=== PATIENT | female | born 1975 | race African-American/Black ===

== ENCOUNTER 2022-12-21 10:30 | Inpatient (IN) ==
--- NOTE | 2022-12-03 10:14 | PAT Medication Instructions ---
Medication Instructions Date of Service December 03, 2022 Home Medications gabapentin 300 mg capsule 300 mg PO TID oxycodone-acetaminophen 10 mg-325 mg tablet (Percocet) 1 tab PO QID Take morning of surgery With a small sip of water, OTHERWISE NOTHING TO EAT OR DRINK AFTER MIDNIGHT: gabapentin 300 mg capsule 300 mg PO TID oxycodone-acetaminophen 10 mg-325 mg tablet (Percocet) 1 tab PO QID Take evening before surgery gabapentin 300 mg capsule 300 mg PO TID oxycodone-acetaminophen 10 mg-325 mg tablet (Percocet) 1 tab PO QID Other Notes If you have any questions please call us at [phone] or [phone] or [phone] or [phone]
--- NOTE | 2022-12-07 11:03 | Anesthesiology Consultation ---
Date of Service December 07, 2022 Assessment & Plan (1) Encounter for pre-operative examination: - COVID screening: Per assessment on 12/07: No known COVID-19 positive contacts or current COVID-19 related symptoms. Travel screen negative. At surgeon discretion if preop Covid testing being done. - G6PD deficiency: Diagnosed in childhood d/t family history. Per pt, she states she was told that due to this condition she needs to avoid ASA and sulfa as well as other associated medications. Case reviewed with Dr. Dennis. Nothing further needed preoperative from his perspective besides flagging in the chart. Chart Review Chart Review: Acceptable Risk for Surgery and Patient seen in Pre Admission Testing Teaching & Discussion Pre-Anesthesia Teaching/Discussion Notes: Instructed NPO after midnight before surgery,except medications with 15 cc of water. Medication instructions provided according to the PAT guidelines. History Surgery Operation Date: 12/21/22 07:45 Proposed Procedures p L4-S1 Decompression and Fusion, Spinal Cord Monitoring - Mak Bejarano, Height/Weight Height: 5 ft 1 in Weight: 74.3 kg Allergies Allergy/AdvReac Type Severity Reaction Status Date / Time aspirin Allergy Intermediate G6PD blood Verified 12/07/22 11:14 disorder Sulfa (Sulfonamide Allergy Intermediate G6PD blood Verified 12/07/22 11:14 Antibiotics) disorder Medications Home Medications Medication Instructions Recorded Confirmed Last Taken gabapentin 300 mg capsule 300 mg PO TID 12/03/22 12/03/22 Unknown oxycodone-acetaminophen 10 mg-325 1 tab PO QID 12/03/22 12/03/22 Unknown mg tablet (Percocet) Past Medical History Medical History Chronic back pain DDD (degenerative disc disease) G-6-PD deficiency Tested as child d/t family hx No aspirin products or sulfa due to this History of COVID-19 Three times, most recent 03/2022 > hospitalized with initial infection 09/2020 Neuropathy Feet + occasionally hands Sciatica Spinal stenosis Exercise / Class Metabolic Activity II 4-5 Yardwork/Stairs/Walk up hill Past Family History Family History Mother Diabetes Grandmother Diabetes Sister Diabetes Past Surgical History Surgical History History of bilateral tubal ligation History of breast biopsy benign History of cholecystectomy History of tooth extraction Past Anesthesia History No Hx of Anesthesia Complications and No Family Hx of Anesthesia Complications History of PONV No Hx of PONV and No Hx of Motion Sickness Social History Smoking Status: Current every day smoker tobacco type: cigarettes Smoking cigarettes per day: 3-4 per day Do You Dip or Chew Tobacco: No Hx Alcohol Use: Yes Alcohol type: wine alcohol intake frequency: holidays/special occasions only Hx Substance Use: No substance use type: does not use Review of Systems Patient denies chest pain, shortness of breath, dyspnea on exertion, fever, chills, cough, wheezing, palpitations. Physical Exam Vital Signs VITALS BP 116/78 P 99 TEMP 98.5 SP02 97%RA RESP 16 PHYSICAL Full cervical extension range of motion. Full TMJ range of motion. TMD 3.5 finger breaths Mallampati Score 2 (macroglossia) Dentition: upper partial Lungs: clear throughout to auscultation Cardiac: regular rate and rhythm, no murmurs noted Spine: normal Carotid arteries: negative bruit Extremities: no edema Lab Results Anesthesia Preop Results Results Anesthesia Widget: WBC 6.70 K/ul (4.8-10.8) 12/07/22 Hgb 12.0 g/dl (12.0-16.0) 12/07/22 Hct 36.0 % (37.0-47.0) L 12/07/22 Plt 440 K/uL (130-400) H 12/07/22 Na 139 mmol/L (136-145) 12/07/22 K 3.6 mmol/L (3.5-5.1) 12/07/22 Cl 105 mmol/L (98-107) 12/07/22 CO2 30 mmol/L (21-32) 12/07/22 BUN 12 mg/dl (6-23) 12/07/22 Creat 0.77 mg/dl (0.6-1.2) 12/07/22 Glucose Level 86 mg/dl (70-99(Fasting)) 12/07/22 PT 10.4 Seconds (9.0-12.0) 12/07/22 PTT 25.5 Seconds (21.0-31.0) 12/07/22 INR 1.0 (0.9-1.1) 12/07/22 Urine Color Dark Yellow 12/07/22 Urine Appearance Cloudy (Clear) A 12/07/22 Urine pH 5.5 (4.5-7.5) 12/07/22 Urine Specific Fielding 1.026 (1.000-1.030) 12/07/22 Urine Protein Trace (Negative) H 12/07/22 Urine Glucose (UA) Negative (Negative) 12/07/22 Urine Ketones Trace (Negative) H 12/07/22 Urine Blood Negative (Negative) 12/07/22 Urine Nitrite Negative (Negative) 12/07/22 Urine Bilirubin Negative (Negative) 12/07/22 Urine Urobilinogen Negative (Negative) 12/07/22 Urine Leukocyte Esterase Negative (Negative) 12/07/22 Urine WBC (Auto) 1-5 /hpf (0-5) 12/07/22 Urine RBC (Auto) 10-30 /hpf (0-4) H 12/07/22 Urine Hyaline Casts (Auto) 5-10 /lpf (0-5) H 12/07/22 Urine Epithelial Cells (Auto) >30 /lpf (0-5) H 12/07/22 Urine Bacteria (Auto) 2+ (Negative) H 12/07/22 Blood Type B Positive 12/07/22 Antibody Screen NEGATIVE 12/07/22 Testing Laboratory Results Surgeon's office made aware of abnormal UA* Electrocardiogram Date: 12/07/22 Findings: + NSR @ (80) Chest X-Ray Date: 12/07/22 FINDINGS: The lungs are clear. Cardiac silhouette is normal in size. No pleural effusions. No pneumothorax. Prior cholecystectomy. IMPRESSION: No acute process. COVID-19 Risk Screen Screening Information COVID-19 Screen Date: 12/07/22 Exposure 21 Days Family/Household +COVID Last 21 Days: No Exposure 10 Days Any COVID Exposure Last 10 Days: No Symptoms Last 10 Days Experienced COVID Sx Last 10 Days: No + COVID 0-90 Days COVID + in Last 0-90 Days: No
[~2022-12-21 10:30] MED LIST: ACETAMINOPHEN 500 MG TAB PO SCH; GABAPENTIN 900 MG DOSE PO SCH; LR 15ML/HR IV SCH; ceFAZolin 2000MG 2,000 MG/15 ML SYR IV SCH
[2022-12-21] MEDS ORDERED: ONDANSETRON INJ 2 MG/ML 2 ML VIAL IV PRN ×2 (11:26→16:37)
[2022-12-21] MEDS ORDERED: ePHEDrine sulfate 50 MG/ML AMP IV PRN (11:26)
[2022-12-21] MEDS ORDERED: ATROPINE SULFATE 0.1 MG/ML 10ML SYR IV PRN (11:26)
[2022-12-21] MEDS ORDERED: fentaNYL citrate 100 MCG/2 ML VIAL IV PRN (11:26)
[2022-12-21] MEDS ORDERED: HYDROmorphone INJ 1 MG/ML SYRINGE IV PRN (11:26)
--- NOTE | 2022-12-21 11:56 | History & Physical Bridge Note ---
Date of Service December 21, 2022 History & Physical Bridge Note I have examined the patient, reviewed the History & Physical and in the interval since the performance of the History & Physical I have noted the following changes of clinical significance: no changes noted
--- NOTE | 2022-12-21 11:57 | History & Physical Report ---
Date of Service December 21, 2022 Assessment & Plan (1) Lumbar disc herniation with radiculopathy: Plan: L4-S1 decompression and fusion History of Present Illness Chief Complaint: Back and leg pain Primary Care Provider: NO PCP This is a 46-year-old female who presents for persistent back and leg pain after failing course of nonoperative care she is here for surgical invention. Allergies Allergy/AdvReac Type Severity Reaction Status Date / Time aspirin Allergy Intermediate G6PD blood Verified 12/21/22 10:56 disorder Sulfa (Sulfonamide Allergy Intermediate G6PD blood Verified 12/21/22 10:56 Antibiotics) disorder Home Medications Medication Instructions Recorded Confirmed Type gabapentin 300 mg capsule 300 mg PO TID 12/03/22 12/21/22 History Past Med/Surg History Medical History Chronic back pain DDD (degenerative disc disease) G-6-PD deficiency Tested as child d/t family hx No aspirin products or sulfa due to this History of COVID-19 Three times, most recent 03/2022 > hospitalized with initial infection 09/2020 Neuropathy Feet + occasionally hands Sciatica Spinal stenosis Surgical History History of bilateral tubal ligation History of breast biopsy benign History of cholecystectomy History of tooth extraction Family History Mother Diabetes Grandmother Diabetes Sister Diabetes Social History (Updated 12/21/22 @ 10:56 by Bridgette Carranza RN) Smoking Status: Current every day smoker Cigarettes Per Day: 3-4 per day smoked 1/2 cig prior to arrival; Second Hand Exposure: No; Do You Dip or Chew Tobacco: No; Tobacco Cessation Education Requested by Patient: No Hx Alcohol Use: Yes Alcohol type: wine Hx Substance Use: No Preferred Language: [place]se Communication Ability: Effective Plumber Helper Required: No Beliefs That Will Affect Care: Yazdanism Yazdanism Beliefs: Isalamic > no pork products, and no blood products Current Living Situation: Spouse Other Information That Helps Us Care for You: No Feels Safe at Home: Yes Safety Concerns: Feels Safe At This Time Assistive Devices: Denture - Upper and Denture - Lower Physical Exam Physical Exam: Patient is alert and oriented Heart regular rhythm Lungs clear Results & Data Results & Data ([facility]) Vital Signs (Past 12 Hours) Vital Signs Temp Pulse Resp BP Pulse Ox O2 Del Method 12/21/22 11:00 37 C 83 20 115/74 99 Room Air
[2022-12-21] MEDS ORDERED: BUPIVACAINE 0.25% 30 ML VIAL ONE (12:22)
[2022-12-21] MEDS ORDERED: EPINEPHrine INJ 1 MG/ML AMP ONE (12:23)
[2022-12-21] MEDS ORDERED: ceFAZolin 330 MG/ML 1 GM VIAL ONE (12:24)
[2022-12-21] MEDS ORDERED: fentaNYL citrate 100 MCG/2 ML VIAL ONE ×2 (12:25→14:43)
[2022-12-21] MEDS ORDERED: LIDOCAINE 2% MPF LOCAL 5 ML VIAL INFIL ONE (12:25)
[2022-12-21] MEDS ORDERED: MIDAZOLAM HCL 1 MG/ML 2ML VIAL ONE (12:25)
[2022-12-21] MEDS ORDERED: PROPOFOL IV EMULSION 10 MG/ML 20 ML VIAL IV ONE (12:25)
[2022-12-21] MEDS ORDERED: ROCURONIUM BROMIDE 10 MG/ML 5 ML VIAL IV ONE ×3 (12:27→13:00)
[2022-12-21] MEDS ORDERED: HYDROmorphone INJ 2 MG/ML SYR/VIAL ONE (12:58)
[2022-12-21] MEDS ORDERED: FLOSEAL HEMOSTATIC MATRIX 10ML TOP ONE (13:22)
[2022-12-21] MEDS ORDERED: ONDANSETRON INJ 2 MG/ML 2 ML VIAL ONE (13:38)
[2022-12-21] MEDS ORDERED: DEXAMETHASONE SOD INJ 4 MG/ML VIAL ONE (13:38)
[2022-12-21] MEDS ORDERED: GLYCOPYRROLATE 0.2 MG/ML VIAL ONE (13:39)
[2022-12-21] MEDS ORDERED: NEOSTIGMINE METHYLSULFATE 1 MG/ML 10ML VIAL ONE (13:40)
--- NOTE | 2022-12-21 14:54 | Operative Report ---
Post Operative Report Pre & Post Diagnosis Operation Date: 12/21/22 11:55 Pre-Op Diagnosis: Lumbar disc herniation with spinal stenosis and radiculopathy Post-Op Diagnosis: Same I identified the patient and participated in the time-out.: Yes Procedure Operation Date: 12/21/22 11:55 Actual Procedures #1 lumbar decompression with bilateral medial facetectomies and foraminotomies L3-L4, L4-5 and L5-S1. #2 posterior spinal fusion L4-L5 L5-S1. #3 placement of posterior instrumentation L4-S1. #4 interbody fusion L4-L5 L5-S1. #5 placement of Spira 13 x 26 mm at L4-5 and 12 x 26 mm at L5-S1. #6 placement locally harvested morselized autograft in the posterior gutters. #7 placement of I factor model V toss in the interbody space and posterior lateral gutters. Surgeon Mak Bejarano, Curing Machine Operator Khris Bird Estimated Blood Loss 100 Findings Consistent with Post-Op Diagnosis Specimens None Indications This is a 47-year-old female who presents above-mentioned diagnosis after failed extensive course of nonoperative care she is here for surgical invention. Description of Procedure Patient was met with identified informed consent obtained. Patient was then taken to the operative suite underwent a patient placed in a prone position the Jex table atop the Justin frame. All bony prominences well-padded eyes inspected to ensure no external pressure placed upon the. This point the lumbar spine was prepped and draped in normal sterile fashion. Sharp dissection with the assistance of Bovie cautery was performed down to and exposing the lamina and transverse processes of L4-L5 and sacral ala bilaterally. No calcified fashion complete laminectomy of L5 L4 and partial and active L3 was performed including bilateral medial facetectomies and foraminotomies addressing severe neural compression and stenosis. Pedicle screws were then placed in L4-L5 and S1 levels bilaterally with assistance of fluoroscopy and the properly sized jhon placed. By way the transforaminal approach and left P discectomy of L5-S1 was performed endplates corrected to subcortical bleeding bone and a 12 x 26 mm Spira cage with I factor tapped in position. Then proceeded to L f4or L5 and again by way of a transforaminal approach on the left complete discectomy performed endplates curetted to subcortically bone and a 13 x 26 mm spiral cage with I factor tapped in position. Rods were then locked into final position bilaterally. The transverse processes of L 4 L5 and sacral ala burred to subcortical bone. I factor amount of the test and locally harvested morselized autograft was placed in the posterior gutters. 15 round SANIA drain inserted. The incision was then closed with 1 Vicryl the fascia 2-0 Vicryl subcutaneously and 4 Monocryl for final skin closure. Steri-Strips dressings placed. Patient waken taken to PACU in stable condition. Please note spinal cord monitoring was utilized at the procedure no changes noted. Lastly Khris Bird was present at the entire surgery and while the patient positioning complex portions of the surgery and final skin closure. I attest to the content of the Intraoperative Record and any orders documented therein. Any exceptions are noted below.
--- NOTE | 2022-12-21 14:56 | Fluoroscopy Report ---
INTRAOPERATIVE RADIOGRAPHS CLINICAL HISTORY: Lumbar spinal fusion surgery. Fluoro time: 31 seconds Exposure: 25.24 mGy FINDINGS: 2 spot fluoroscopic views of the lumbar spine are presented. There has been discectomy at L 4-L5 and L5-S1 with laminectomy and posterior fusion at L4-S1. Interpedicular screws are present at a ll levels. The orthopedic hardware appears intact. IMPRESSION: Intraoperative images from lumbar spinal fusion surgery as above. Electronically signed by: Juvenal Paul M.D. 12/21/2022 2:55 PM
--- NOTE | 2022-12-21 16:12 | Anesthesiology Progress Note ---
Date of Service December 21, 2022 Anesthesia Post Procedure Vital Signs Vital Signs: Temp Pulse Pulse Resp BP Pulse Ox O2 Del Method 12/21/22 16:05 68 14 96/59 L 96 Nasal Cannula 12/21/22 15:55 36.4 C L 69 14 102/57 L 96 Nasal Cannula 12/21/22 15:45 71 16 97/57 L 100 Oxymask 12/21/22 15:35 89 18 111/74 98 Oxymask 12/21/22 15:25 74 12 104/84 98 Oxymask 12/21/22 15:15 72 14 102/55 L 96 Oxymask 12/21/22 15:09 36.2 C L 62 20 98/66 L 96 Oxymask 12/21/22 11:00 37 C 83 20 115/74 99 Room Air O2 Flow Rate 12/21/22 16:05 2 12/21/22 15:55 3 12/21/22 15:45 4 12/21/22 15:35 4 12/21/22 15:25 11 12/21/22 15:15 11 12/21/22 15:09 11 12/21/22 11:00 Pain Intensity Bilateral Lower Back: Pain Intensity: 6 Transfer of Care Handoff Completed per policy Notes Mental Status: alert / awake / arousable and participated in evaluation Patient Amnestic to Procedure: Yes Nausea / Vomiting: adequately controlled Pain: adequately controlled Airway Patency, RR, SpO2: stable & adequate BP & HR: stable & adequate Hydration State: stable & adequate Anesthetic Complications: no major complications apparent and Pt Satisfied with anesthetic care
[2022-12-21] MEDS ORDERED: diphenhydrAMINE Capsule 25 MG CAP PO PRN (16:37)
[2022-12-21] MEDS ORDERED: NALOXONE HCL 0.4 MG/1 ML VIAL/CARP IV PRN (16:37)
[2022-12-21] MEDS ORDERED: ACETAMINOPHEN 500 MG TAB PO PRN (16:37)
[2022-12-21] MEDS ORDERED: SOD PHOSPHATE/SOD BIPHOSPHATE ENEMA 132 ML BTL PR PRN (16:37)
[2022-12-21] MEDS ORDERED: DO NOT ADMINISTER PNEUMOCOCCAL VACCINE PRN (16:37)
[2022-12-21] MEDS ORDERED: METOCLOPRAMIDE HCL INJ 5 MG/ML 2 ML VIAL IV PRN (16:37)
[2022-12-21] MEDS ORDERED: bisacodyL 10 MG SUPP PR PRN (16:37)
[2022-12-21] MEDS ORDERED: ACETAMINOPHEN 1,000 MG/100 ML VIAL IV PRN (16:37)
[2022-12-21] MEDS ORDERED: FAMOTIDINE 20 MG TAB PO PRN (16:37)
[2022-12-21] MEDS ORDERED: PROMETHAZINE HCL 12.5 MG in SODIUM CHLORIDE 0.9% 50 ML IV PRN (16:37)
[2022-12-21] MEDS ORDERED: hydrOXYzine HCl 25 MG TAB PO PRN (16:37)
[2022-12-21] MEDS ORDERED: ALUMINUM/MAGNESIUM SUSP 30 ML UDC PO PRN (16:37)
[2022-12-21] MEDS ORDERED: DO NOT ADMINISTER FLU VACCINE PRN (16:37)
[2022-12-21] MEDS ORDERED: LORazepam 2 MG/1 ML VIAL IV PRN (16:37)
[2022-12-21] MEDS ORDERED: LORazepam 0.5 MG TAB PO PRN (16:37)
[2022-12-21] MEDS ORDERED: MAGNESIUM HYDROXIDE SUSP 30 ML UDC PO PRN (16:37)
[2022-12-21] MEDS ORDERED: ONDANSETRON 4 MG OD TAB PO PRN (16:37)
[2022-12-21] MEDS: HYDROmorphone INJ 0.5 MG/0.5 ML SYR IV PRN ×2 (16:52→21:54)
[2022-12-21] MEDS: LACTATED RINGER'S 1,000 ML IV SCH (17:02)
[2022-12-21] MEDS: oxyCODONE HCL IR 5 MG TAB (IMMEDIATE RELEASE) PO PRN (20:25)
[2022-12-21] MEDS: GABAPENTIN 300 MG CAP PO SCH (20:25)
[2022-12-21] MEDS: DOCUSATE SODIUM/SENNA 50/8.6MG TAB PO SCH (20:26)
[2022-12-21] MEDS: ceFAZolin 2000MG 2,000 MG/15 ML SYR IV SCH (20:26)
[2022-12-22] MEDS: oxyCODONE HCL IR 5 MG TAB (IMMEDIATE RELEASE) PO PRN ×3 (00:31→17:06)
[2022-12-22] MEDS: traMADol HCL 50 MG TABLET PO PRN ×3 (02:01→14:04)
[2022-12-22] MEDS: HYDROmorphone INJ 0.5 MG/0.5 ML SYR IV PRN ×4 (03:02→21:52)
[2022-12-22] MEDS: LACTATED RINGER'S 1,000 ML IV SCH (05:01)
[2022-12-22] MEDS: ceFAZolin 2000MG 2,000 MG/15 ML SYR IV SCH (06:08)
[2022-12-22] MEDS: POLYETHYLENE (MIRALAX) 17 GM PACK PO SCH ×4 (06:08→23:49)
[2022-12-22 07:51] LABS: Basophils # (auto) 0.01 K/uL (0-0.2); Basophils % (auto) 0.1 %; Eosinophils # (auto) 0.01 K/uL (0-0.50); Eosinophils % (auto) 0.1 %; Hematocrit (blood only) 28.2 % (37.0-47.0); Hemoglobin 9.3 g/dl (12.0-16.0); Immature Granulocytes # (auto) 0.08 K/uL (0.01-0.20); Immature Granulocytes % (auto) 0.6 %; Lymphocytes # (auto) 2.59 K/uL (1.2-3.4); Lymphocytes % (auto) 19.8 %; Mean Corpuscular Hemoglobin 28.7 pg (25.0-34.0); Mean Platelet Volume 9.9 fL (9.4-12.4); Monocytes # (auto) 1.18 K/uL (0.11-0.59); Neutrophils # (auto) 9.21 K/uL (1.40-6.50); Neutrophils % (auto) 70.4 %; Platelet Count 345 K/uL (130-400); RDW Coefficient of Variation 12.7 % (11.5-14.5); RDW Standard Deviation 40.6 fL (36.4-46.3); Red Blood Count 3.24 M/uL (4.20-5.40); White Blood Count 13.08 K/ul (4.8-10.8)
[2022-12-22] MEDS: GABAPENTIN 300 MG CAP PO SCH ×3 (07:53→20:10)
[2022-12-22] MEDS: dexAMETHasone 6 MG in SYRINGE 0 ML IV SCH (07:53)
[2022-12-22 08:14] LABS: BUN Creatinine Ratio 12.9 (10-20); Calcium 8.8 mg/dl (8.5-10.1); Creatinine Clr Calc Pharmacy 104.1 ml/min; Est GFR (African American) 126.2 ml/min; Est GFR (Non-African American) 108.9 ml/min; Potassium 3.4 mmol/L (3.5-5.1)
--- NOTE | 2022-12-22 08:20 | Orthopedic Progress Note ---
Date of Service December 22, 2022 Assessment & Plan (1) Lumbar disc herniation with radiculopathy: Plan: At this time initiate physical therapy monitor SANIA output throughout the weekend and possible discharge home Saturday. Admission and Anticipated Discharge Date Admission Date: December 21, 2022 Subjective Back pain controlled left leg symptoms improved but still limiting. Physical Exam Physical Exam: Patient is in bed. She is sitting up. She is comfortable. Is good strength testing. Results & Data ([facility]) Vital Signs (Past 12 Hours) Vital Signs Temp Pulse Pulse Resp BP Pulse Ox O2 Del Method 12/22/22 07:47 36.6 C 72 16 112/78 94 Room Air 12/22/22 03:30 36.9 C 73 16 107/71 97 Room Air 12/21/22 23:21 36.8 C 70 16 105/68 96 Room Air
[2022-12-22] MEDS ORDERED: POTASSIUM CHLORIDE CRTAB 20 MEQ TABCR PO STA (08:29)
--- NOTE | 2022-12-22 10:08 | Hospitalist Consultation ---
Date of Consultation December 22, 2022 Assessment & Plan (1) Lumbar disc herniation with radiculopathy: s/p lumbar decompression and fusion on 12/21/[address] Bejarano - Pain medications, ambulation, drain management, and dvt ppx per primary service - utilize incentive spirometer q1-2h wa for atelectasis/pna prevention (2) Hypokalemia: - Replacement ordered with KCl 40 meq po x1 (3) Tobacco use: - Counseled on importance of cessation - Will provide Nicotine patch 7mg daily Plan Recommendations as outlined above. Thank you for allowing us to participate in the care of your patient, will sign off as patient is medically stable. Please feel free to reach out should any acute needs arise while she remains in house. Above plan of care has been d/w Dr. Wright who has also seen and evaluated this patient. History of Present Illness Reason for Consultation: Medical management Requesting Physician: Dr. Bejarano Attending Physician: Mak Bejarano, DO History of Present Illness Amna Hargrove is a pleasant 47 yo F with no past medical history who was admitted under Dr. Bejarano's service for elective lumbar decompression and fusion due to lumbar disc herniation with radiculopathy. Patient was taken to the OR on 12/21, tolerated procedure well without any immediate complications. She is seen on pod 1, she is resting comfortably in bed. She had an episode of chest pain overnight for which an EKG was ordered without any acute changes. She believes it was due to anxiety. She is currently w/o chest pain or dyspnea. Back pain is fairly well controlled with medications. She admits to smoking 3-4 cigarettes a day and is requesting a nicotine patch. She denies having a h/o PE or DVT. She otherwise has no complaints, questions, or concerns. Hospitalists were asked to see patient in consult for routine post operative medical management. Allergies Allergy/AdvReac Type Severity Reaction Status Date / Time aspirin Allergy Intermediate G6PD blood Verified 12/21/22 10:56 disorder Sulfa (Sulfonamide Allergy Intermediate G6PD blood Verified 12/21/22 10:56 Antibiotics) disorder banana Allergy Hives Verified 12/21/22 16:50 Home Medications Medication Instructions Recorded Confirmed Type gabapentin 300 mg capsule 300 mg PO TID 12/03/22 12/21/22 History oxycodone 5 mg tablet 5 mg PO Q6H PRN pain, severe #30 12/22/22 Rx tabs tramadol 50 mg tablet 50 mg PO Q6H PRN pain, moderate 12/22/22 Rx #30 tabs Patient History Medical History Chronic back pain DDD (degenerative disc disease) G-6-PD deficiency Tested as child d/t family hx No aspirin products or sulfa due to this History of COVID-19 Three times, most recent 03/2022 > hospitalized with initial infection 09/2020 Neuropathy Feet + occasionally hands Sciatica Spinal stenosis Surgical History History of bilateral tubal ligation History of breast biopsy benign History of cholecystectomy History of tooth extraction Family History Mother Diabetes Grandmother Diabetes Sister Diabetes Social History (Updated 12/21/22 @ 10:56 by Bridgette Carranza RN) Smoking Status: Current every day smoker Cigarettes Per Day: 4; Second Hand Exposure: No; Do You Dip or Chew Tobacco: No; Tobacco Cessation Education Requested by Patient: No Hx Alcohol Use: Yes Alcohol type: wine Hx Substance Use: No Preferred Language: Telugu Communication Ability: Effective Traffic Controller Cable Required: No Beliefs That Will Affect Care: None Current Living Situation: Spouse and Family Other Information That Helps Us Care for You: No Feels Safe at Home: Yes Safety Concerns: Feels Safe At This Time Assistive Devices: Bedside Commode and Walker Physical Exam Physical Exam: GENERAL: 47 yo Well-developed, well-nourished F. NAD. LUNGS: Clear to auscultation bilaterally. CARDIOVASCULAR: Regular rate and rhythm. NEUROLOGIC: A&O x3. No focal neurological deficits. CN II-XII intact Results & Data Results & Data ([facility]) Vital Signs (Past 12 Hours) Vital Signs Temp Pulse Pulse Resp BP Pulse Ox O2 Del Method 12/22/22 07:47 36.6 C 72 16 112/78 94 Room Air 12/22/22 03:30 36.9 C 73 16 107/71 97 Room Air 12/21/22 23:21 36.8 C 70 16 105/68 96 Room Air Laboratory Results 12/22/22 06:50 12/22/22 06:50 PG Care Time/CCT Total # of Minutes Spent Total Time Spent with Patient: Total time spent is greater than 50% in coordination of care (as documented) at patient's floor/unit and/or counseling patient: Coding Level of Care Code INP/OBS CONSULT LVL 4, 60 MIN Diagnoses Lumbar disc herniation with radiculopathy M51.16 Hypokalemia E87.6 Tobacco use Z72.0
[2022-12-22] MEDS: NICOTINE 7 MG/24 HR TDSY TD SCH (11:11)
--- NOTE | 2022-12-22 11:28 | Electrocardiogram Report ---
Test Reason : Blood Pressure : / mmHG Vent. Rate : 063 BPM Atrial Rate : 063 BPM P-R Int : 160 ms QRS Dur : 082 ms QT Int : 412 ms P-R-T Axes : 039 053 028 degrees QTc Int : 421 ms Normal sinus rhythm Normal ECG When compared with ECG of 07-DEC-2022 11:28, No significant change was found Confirmed by Andrew Foss ([id number]) on 12/22/2022 11:28:21 AM Referred By: Mak Bejarano Confirmed By:Andrew Foss
[2022-12-22] MEDS: DOCUSATE SODIUM/SENNA 50/8.6MG TAB PO SCH (20:10)
[2022-12-23] MEDS: HYDROmorphone INJ 0.5 MG/0.5 ML SYR IV PRN ×3 (03:53→19:34)
[2022-12-23] MEDS: POLYETHYLENE (MIRALAX) 17 GM PACK PO SCH ×2 (05:58→12:36)
[2022-12-23] MEDS: oxyCODONE HCL IR 5 MG TAB (IMMEDIATE RELEASE) PO PRN ×3 (05:58→21:55)
[2022-12-23] MEDS: traMADol HCL 50 MG TABLET PO PRN (09:25)
[2022-12-23] MEDS: dexAMETHasone 6 MG in SYRINGE 0 ML IV SCH (09:26)
[2022-12-23] MEDS: GABAPENTIN 300 MG CAP PO SCH ×3 (09:26→20:29)
[2022-12-23] MEDS: NICOTINE 7 MG/24 HR TDSY TD SCH (09:26)
--- NOTE | 2022-12-23 11:03 | Electrocardiogram Report ---
Test Reason : Blood Pressure : / mmHG Vent. Rate : 059 BPM Atrial Rate : 059 BPM P-R Int : 130 ms QRS Dur : 080 ms QT Int : 420 ms P-R-T Axes : 009 055 028 degrees QTc Int : 415 ms Sinus bradycardia Normal ECG When compared with ECG of 07-DEC-2022 11:28, No significant change was found Confirmed by Andrew Foss ([id number]) on 12/23/2022 11:02:49 AM Referred By: Mka Bejarano Confirmed By:Andrew Foss
--- NOTE | 2022-12-23 11:08 | Orthopedic Progress Note ---
Date of Service December 23, 2022 Assessment & Plan (1) Lumbar disc herniation with radiculopathy: Plan: At this time we will continue physical therapy monitor SANIA output anticipate discharge home possibly Saturday. Admission and Anticipated Discharge Date Admission Date: December 21, 2022 Subjective Patient's back pain is controlled left leg pain markedly improved Physical Exam Physical Exam: Patient is currently in bed. She is distracted testing. Results & Data ([facility]) Vital Signs (Past 12 Hours) Vital Signs Temp Pulse Resp BP Pulse Ox O2 Del Method 12/23/22 08:21 36.8 C 77 14 130/75 96 Room Air
[2022-12-23] MEDS ORDERED: Nursing to Pharmacy Communication SCH (16:30)
[2022-12-23] MEDS: DOCUSATE SODIUM/SENNA 50/8.6MG TAB PO SCH (20:29)
[2022-12-24] MEDS: HYDROmorphone INJ 0.5 MG/0.5 ML SYR IV PRN (01:33)
[2022-12-24] MEDS: oxyCODONE HCL IR 5 MG TAB (IMMEDIATE RELEASE) PO PRN ×3 (06:14→20:27)
[2022-12-24] MEDS: traMADol HCL 50 MG TABLET PO PRN ×3 (07:56→23:34)
[2022-12-24] MEDS: GABAPENTIN 300 MG CAP PO SCH ×3 (07:56→20:24)
[2022-12-24] MEDS: DOCUSATE SODIUM/SENNA 50/8.6MG TAB PO SCH (07:57)
[2022-12-24] MEDS: NICOTINE 7 MG/24 HR TDSY TD SCH (07:58)
[2022-12-24] MEDS: dexAMETHasone 6 MG in SYRINGE 0 ML IV SCH (10:00)
--- NOTE | 2022-12-24 10:45 | Orthopedic Progress Note ---
Date of Service December 24, 2022 Assessment & Plan (1) Lumbar disc herniation with radiculopathy: Plan: At this time we will continue physical therapy monitor SANIA operatively discharge home tomorrow. Admission and Anticipated Discharge Date Admission Date: December 21, 2022 Subjective Patient's back and leg pain steadily improving. She is tolerating physical therapy. Physical Exam Physical Exam: On exam she is stable in bed. She is cooperative. She is anxious to testing. Results & Data ([facility]) Vital Signs (Past 12 Hours) Vital Signs Temp Pulse Resp BP Pulse Ox O2 Del Method 12/24/22 08:00 Room Air 12/24/22 07:10 37.0 C 91 H 17 126/89 95 Room Air
[2022-12-25] MEDS: oxyCODONE HCL IR 5 MG TAB (IMMEDIATE RELEASE) PO PRN ×2 (04:57→12:00)
[2022-12-25] MEDS: traMADol HCL 50 MG TABLET PO PRN (07:39)
[2022-12-25] MEDS: GABAPENTIN 300 MG CAP PO SCH (07:40)
[2022-12-25] MEDS: NICOTINE 7 MG/24 HR TDSY TD SCH (07:40)
--- NOTE | 2022-12-25 08:49 | Discharge Summary ---
Date of Service December 25, 2022 Principal Diagnosis Lumbar spinal stenosis with herniated nucleus pulposus and radiculopathy Discharge Data Allergies Allergy/AdvReac Type Severity Reaction Status Date / Time aspirin Allergy Intermediate G6PD blood Verified 12/21/22 10:56 disorder Sulfa (Sulfonamide Allergy Intermediate G6PD blood Verified 12/21/22 10:56 Antibiotics) disorder banana Allergy Hives Verified 12/21/22 16:50 Consultations 12/22/22 07:06 Consult Hospitalist Routine Procedures Performed Operation Date: 12/21/22 11:55 Actual Procedures p L4-S1 Decompression and Fusion, Spinal Cord Monitoring(Not Applicable) - Mak Bejarano DO Ordered Studies 12/21/22 11:55 [place] lumbar spine 2-3V Routine Hospital Course (1) Lumbar disc herniation with radiculopathy: Patient with lumbar decompression fusion tolerated as well as taken orthopedic for postoperative. Postop day 1 she was up and ambulating. Postop day #2 and 3 SANIA drain decreasing appropriately. Pain steadily improving. Excellent strength testing. Subsidy discharged home. Discharge orders and instructions found in the chart for further review. Total Time Total Time Spent Total Time Spent (In Minutes): 20 minutes Discharge Plan Discharge Items Patient Disposition: Home - Self-Care Reason For Visit: Radiculopathy, Lumbar Region Discharge Diagnosis: Lumbar spinal stenosis with radiculopathy Activity: As commented below Non-emergency contact: Primary Care Provider Call non-emergency contact if: you have any medication questions Follow-up/Referrals: PCP,NO [Primary Care Provider] - Diet: Regular Addtl Attending Provider Instructions: ACTIVITY RECOMMENDATIONS: SELF CARE INSTRUCTIONS AFTER THORACIC/LUMBAR FUSIONS 1. You may walk to your tolerance. It is good exercise for your legs and back. Expect some back and intermittent leg aches and pains. 2. You may perform "counter-top" level activities (make a sandwich, dieudonne with a project, etc.). 3. No bending or lifting of more than 10 pounds or back twisting of any nature (roll like a log when turning in bed). 4. You may ride in a car for 20-30 minutes at a time. No driving until after your first visit with your doctor. 5. Frequent changes of position and restricting sitting to 30 minutes at a time will help limit the amount of back spasms and stiffness you may experience. 6. You may discontinue the use of ambulatory aids (cane, crutches, etc.) once your strength and confidence allow. 7. You may proof inspector the shower and let water strike your incision when you arrive home at least once daily. Do not take a tub bath, sit in a hot tub or go into a swimming pool until after your first recheck in the office. SPECIAL CARE INSTRUCTIONS: VERY IMPORTANT TO READ AND REVIEW A. Your surgical incision has been closed with a cosmetic suture under the skin that will dissolve in about 6 weeks. In 14 days, you can use a pair of clean scissors and cut the suture that is left outside of the skin at the ends of your incision. 1. The small skin tapes can be removed 7 days after surgery if they have not fallen off by that point. 2. You may keep the wound open to air as much as possible to promote healing after post-op day number 5 unless told otherwise by your doctor. 3. If you think the wound looks like it is becoming infected (redness or worsening drainage) and/or you are experiencing fever, chill or worsening back pain and muscle spasms, contact the office so that we may evaluate you as soon as possible. B. Complications are uncommon, but please contact us if you have any signs or symptoms of: 1. wound infection (fever higher than 102.5 degrees F, redness, separation of wound, drainage, or increasing pain from the incision) 2. blood clots in legs (pain, swelling, redness and warmth in legs) 3. urinary tract infection (fever higher than 102.5 degrees F, burning upon urination or increased frequency of urination) 4. nerve problems (inability to walk on your toes or heels, numbness, loss of bowel or bladder control) 5. any other symptoms that concern you C. Please call the office at if you have any concerns or questions about your operation or recovery. D. No smoking! Smoking drastically decreases the chance of a solid fusion. E. Do not take any anti-inflammatory medications (Indocin, Advil, Motrin, Aspirin, Naprosyn, etc.) as these may inhibit the chance of a solid fusion. Tylenol is okay to take for pain. MANAGING PAIN AFTER SPINAL SURGERY 1. Narcotic medication is intended for short-term use and will be provided for surgical pain. Surgical pain usually lasts for a period of 4-6 weeks. Narcotic medication includes Percocet, Vicodin, Darvocet, Tylenol #3 or Lortab. 2. Longer-term pain is more appropriately treated with non-narcotic medication such as Tylenol ES. 3. Muscle spasm is not appropriately treated with narcotics. Muscle relaxers such as Soma, Flexeril or Skelaxin can be used along with Tylenol ES. 4. Remember that we all live with some "aches and pains". This is not unusual or uncommon after an injury or as we get older. a. Back pain is expected and may include muscle spasms for 4 to 6 weeks after surgery. The pain should gradually improve. If the pain worsens for no apparent reason, please contact the office. b. Intermittent leg pain may also be experienced and should not be concerned about unless it worsens for no apparent reason. If so, please contact the office. 5. We will provide appropriate medication within the normal guidelines of their prescribed use. We will also be very cautious and aware of potential abuse and extended duration of patients' medication needs. a. Pain medications are for your comfort and to assist with sleep and rest so that the tissue can heal. They are not provided in order to return to normal activity and should not be used through the day. To do so or worsening pain at night can result from ongoing tissue damage and development of tolerance to the prescribed medicine. 6. Please allow 2-3 days to process refills. Prescriptions will not be mailed but must be picked up at the office. FOLLOW UP VISIT: Keep your scheduled follow-up appointment. Any questions, please call the office at . Pending Studies at Discharge: No Stand-Alone Forms: [facility] [email or web address], Smoking Cessation Medications and DC Order Prescriptions: New tramadol 50 mg tablet 50 mg PO Q6H PRN (Reason: pain, moderate) Qty: 30 0RF oxycodone 5 mg tablet 5 mg PO Q6H PRN (Reason: pain, severe) Qty: 30 0RF Continued gabapentin 300 mg Capsule 300 mg PO TID Discharge Orders: Discharge Order (Routine); Ordered 12/25/22 Ordered By: Mak Bejarano Admission Data Admit Date/Time: 12/21/22 14:57 Attending Provider: Mak Bejarano Admit Provider: Mak Bejarano Primary Care Provider: PCP,NO Other Providers: Danilo Araujo ; Guerita Hall ; Danyel Nava ; Nolan Black ; Pedro Wright ; Clifton Garcia ; Juvenal Matthews ; Darshana Chi ; Liberty Otto ; Edmund Magana ; Silverio Brewer ; Brittney Singh ; Saleem Nye ; Jamal Tatum ; Dianna Prater ; Suzanne Key ; Aurelia Erazo ; Omer Arechiga ; Vlad Hood ; Sue Walker ; Guerita Ibrahim ; Nereaj Buckner ; Ney Frost ; Danyel Koenig ; Digna Calderon ; Ben Castillo ; Rangel Wu ; Evelyn Potts ; Manjinder Reno ; Kassy Oakes ; Travis Hoyt ; Carolyn Davila ; Beltran Ferrara ; Justen Silva ; Denise Guzman ; Kar Estrella ; Lindsey Garcia
== END 2022-12-25 12:15 | disposition home or self-care (01) | DRG 455 ==
LOC: ASU 10:30 → 3W 14:57